=== PATIENT | female | born 1940 | race Two or more races ===

== ENCOUNTER 2023-04-14 10:19 | Emergency (ER) | payer OTHER ==
[~2023-04-14] VITALS: Ht 167.6 cm; Wt 68.0 kg
[2023-04-14] MEDS ORDERED: ATORVASTATIN CA20 MG PO (10:41)
[2023-04-14 11:41] LABS: HEMATOCRIT 37.8 % (36.0-45.00); HEMOGLOBIN 12.9 g/dL (12.0-15.00); MEAN CELL VOLUME 89.8 fL (80.00-100.00); MEAN CORPUSCULAR HEMOGLOBIN 30.6 pg (27.00-32.0); MEAN CORPUSCULAR HGB CONC 34.1 g/dl (32.0-36.0); PLATELET COUNT 237 K/uL (150-450); RED BLOOD COUNT 4.21 M/uL (4.00-6.00); RED CELL DISTRIBUTION WIDTH 13.9 % (11.5-14.5)
[2023-04-14 12:32] LABS: URINE APPEARANCE Turbid; URINE BILIRRUBIN Small (NEGATIVE); URINE BLOOD Large; URINE COLOR Red; URINE GLUCOSE Negative (NEGATIVE); URINE LEUKOCYTE Large; URINE NITRATE Negative; URINE UROBILINOGEN 0.2 E.U./dl
[2023-04-14 12:33] LABS: URINE EPITHELIAL CELLS 2.3 uL (0.0-38.8); URINE WBC 1394.1 uL (0.0-23.2)
[2023-04-14 12:41] LABS: URINE PROTEIN 100 (NEGATIVE); URINE RBC > 10558.9 uL (0.0-20.8)
[2023-04-14] MEDS ORDERED: CEFTRIAXONE SODIUM 1,000 MG VIAL IM STA (12:43)
[2023-04-14] MEDS ORDERED: KETOROLAC TROMETHAMINE 30 MG VIAL IM STA (12:44)
== END 2023-04-14 13:21 | disposition home or self-care (01) ==
LOC: ER 10:19
PROVIDERS: General Practice
DX: N30.90 Cystitis, unspecified without hematuria (principal); Z88.2 Allergy status to sulfonamides; Z85.51 Personal history of malignant neoplasm of bladder
CPT/HCPCS: 36415; 96372; 99284; J0696; J1885